=== PATIENT | female | born 1985 | race Two or more races ===

== ENCOUNTER 2017-11-24 23:40 | Emergency (ER) | payer MEDICAID ==
[~2017-11-24] VITALS: Ht 167.6 cm; Wt 63.5 kg
[2017-11-24 23:48] VITALS: BP 139/64
== END 2017-11-25 00:28 | disposition home or self-care (01) ==
LOC: ER 23:52
DX: S41.152A Open bite of left upper arm, initial encounter (principal); W57.XXXA Bitten or stung by nonvenomous insect and other nonvenomous arthropods, initial encounter; Y93.89 Activity, other specified; Y92.89 Other specified places as the place of occurrence of the external cause; Y99.8 Other external cause status
CPT/HCPCS: 99283; A4606; Z7610